=== PATIENT | female | born 1945 | race Caucasian/White ===

== ENCOUNTER → 2017-03-17 | Outpatient (CLI) | payer OTHER ==
--- NOTE | ~2017-03-17 | BD1 ---
[facility] A Service of [facility] RADIOLOGY TEXT RESULTS PATIENT: ANNA JUAREZ LOCATION: [facility] : 49 UNIT #: [id number] AGE: [address]: Amina Vargas MD SEX: F ORDER DR: [id number] [facility] [address] [place], [place] [address] [id number] O MR#: [id number] Acc #: [id number] NAME: ANNA JUAREZ : 1945 SEX: F STUDY DATE/TIME: 03/17/2017 9:43 UNIT: [facility] ROOM: STUDY DESCRIPTION: BD Dexa Bone Dens 1+ Site Attending Physician: Amina Vargas M.D. Referring Physician: Amina Vargas M.D. Ordering Physician: Amina Vargas M.D. Primary Care Physician: Amina Vargas M.D. MEDICAL IMAGING REPORT This report is preliminary unless electronic signature is present EXAM DXA scan, 03/17/2017 HISTORY Status post menopause with no hormone replacement therapy. Osteopenia. Hysterectomy at age 37. Arthritis. Hypertension with blood pressure medication for 24 years. Smoking history. Fracture of pelvis in last 10 years. FINDINGS Bone mineral density in the lumbar spine from L1-L4 is 0.958 g/cm2 which is 0.8 standard deviations below the mean when compared to the young adult reference population which is within the range of normal. This is 1.3 standard deviations above the mean when compared to the age-matched population. Bone mineral density in the left femoral neck was 0.596 g/cm2 which is 2.3 standard deviations below the mean when compared to the young adult reference population which is characteristic of osteopenia. This is 0.5 standard deviations below the mean when compared to the age-matched population. IMPRESSION Bone mineral density in the lumbar spine within the range of normal and within the left hip characteristic of osteopenia. Dictated by... Johnie Franco M.D. THIS IS AN ELECTRONICALLY VERIFIED REPORT Johnie Franco M.D. at 03/18/2017 7:27 AM KRT/jw [facility] A Service of [facility] RADIOLOGY TEXT RESULTS PATIENT: [facility] JUARE[id number] [birth year] UNIT #: [id number] AGE: [address]: Amina Vargas MD SEX: F ORDER DR: TD: 03/17/2017 13:20 JOB #: [id number] MEDICAL IMAGING REPORT Page 1 of 1 COPY
--- NOTE | ~2017-03-17 | MY29 ---
[facility] A Service of [facility] RADIOLOGY TEXT RESULTS PATIENT: ANNA JUAREZ LOCATION: [facility] : 49 UNIT #: [id number] AGE: [address]: Amina Vargas MD SEX: F ORDER DR: [id number] [facility] [address] [facility] [address] [facility]. [place], [place] [address] [id number] O MR#: [id number] Acc #: [id number] NAME: ANNA JUAREZ : 1945 SEX: F STUDY DATE/TIME: 03/17/2017 10:11 UNIT: [facility] ROOM: STUDY DESCRIPTION: MY BETH SCREENING W/ CAD BILAT Attending Physician: Amina Vargas M.D. Referring Physician: Amina Vargas M.D. Ordering Physician: Amina Vargas M.D. Primary Care Physician: Amina Vargas M.D. MEDICAL IMAGING REPORT This report is preliminary unless electronic signature is present EXAM Digital screening mammogram, 03/17/2017 HISTORY 71-year-old woman no risk elevation. Annual screening. COMPARISON Mammograms date to 11/05/2007 with most recent 03/14/2015. FINDINGS Digital imaging of each breast was completed utilizing a two-view examination of each breast in craniocaudal and mediolateral-oblique projections. Review and interpretation of digital mammograms include a second review in conjunction with FDA-approved CAD device. There is a normal parenchymal presentation bilaterally consistent with the patient's age. There are no breast masses imaged and no parenchymal asymmetry is visualized. There are no suspicious microcalcifications and I see no focal architectural disturbance. IMPRESSION Negative screening digital mammogram. One-year followup recommended. Patients over the age of 40 are entered into a reminder system with target due date for the next mammogram. A result letter will also be sent to the patient. BIRADS: 1 Negative ADDENDUM Breast parenchyma is fatty replaced. Dictated by... Luis Bird M.D. [facility] A Service of [facility] RADIOLOGY TEXT RESULTS PATIENT: ANNA JUAREZ LOCATION: [facility] : 49 UNIT #: [id number] AGE: [address]: Amina Vagras MD SEX: F ORDER DR: THIS IS AN ELECTRONICALLY VERIFIED REPORT Luis Bird M.D. at 03/17/2017 2:44 PM Tasneem TD: 03/17/2017 13:21 JOB #: [id number] MEDICAL IMAGING REPORT Page 1 of 1 COPY
--- NOTE | ~2017-03-17 | CT71 ---
[facility] A Service of [facility] RADIOLOGY TEXT RESULTS PATIENT: ANNA JUAREZ LOCATION: [facility] : 49 UNIT #: [id number] AGE: [address]: Amina Vargas MD SEX: F ORDER DR: [id number] [facility] [address] [place], [place] [address] [id number] O MR#: [id number] Acc #: [id number] NAME: ANNA JUAREZ : 1945 SEX: F STUDY DATE/TIME: 03/17/2017 10:59 UNIT: [facility] ROOM: STUDY DESCRIPTION: CT Head Wo Contrast Attending Physician: Amina Vargas M.D. Referring Physician: Amina Vargas M.D. Ordering Physician: Physician Non-Staff Primary Care Physician: Amina Vargas M.D. MEDICAL IMAGING REPORT This report is preliminary unless electronic signature is present EXAM Head CT, no contrast, 03/17/2017. PROCEDURE Axial unenhanced head CT. This CT exam was performed with one or more of the following radiation dose reduction techniques: automatic exposure control, adjustment of mA and/or kV according to patient size, and iterative reconstruction. CLINICAL HISTORY Palpable skull/scalp lesions. FINDINGS Brain parenchymal density is normal. The brain is structurally normal. There is no hemorrhage or mass or hydrocephalus or extraaxial fluid collection. The skull base and calvaria are remarkable for a tiny outer table osteomas a few millimeters in size, clearly benign and which clearly correspond to the palpable lesion. The exam is otherwise unremarkable. 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 The exam is otherwise normal. Dictated by... Salvador Mendez M.D. THIS IS AN ELECTRONICALLY VERIFIED REPORT Salvador Mendez M.D. at 03/20/2017 4:53 PM BOB/jad [facility] A Service of [facility] RADIOLOGY TEXT RESULTS PATIENT: ANNA JUAREZ LOCATION: [facility] : 49 UNIT #: [id number] AGE: [address]: Amina Vargas MD SEX: F ORDER DR: TD: 03/17/2017 15:15 JOB #: [id number] MEDICAL IMAGING REPORT Page 1 of 1 COPY
== END | disposition home or self-care (01) ==
LOC: CWCC 09:14
DX: Z12.31 Encounter for screening mammogram for malignant neoplasm of breast (principal); Z78.0 Asymptomatic menopausal state; M89.9 Disorder of bone, unspecified; R92.8 Other abnormal and inconclusive findings on diagnostic imaging of breast; M85.88 Other specified disorders of bone density and structure, other site; D16.4 Benign neoplasm of bones of skull and face
CPT/HCPCS: 70450; 77080; G0202